=== PATIENT | male | born 1975 | race Caucasian/White ===

== ENCOUNTER 2020-04-23 01:39 | Outpatient (CLI) | payer OTHER, SELFPAY ==
[2020-04-23 19:29] LABS: SARS-CoV-2 RNA PCR Negative
== END 2020-04-23 01:40 | disposition home or self-care (01) ==
LOC: ANHCOVIDDT 01:40
PROVIDERS: PCP Family Medicine Sports Medicine; Visit Provider Internal Medicine Gastroenterology
DX: Z01.812 Encounter for preprocedural laboratory examination (principal); Z11.59 Encounter for screening for other viral diseases
CPT/HCPCS: 87635; C9803; U0003

== ENCOUNTER 2020-04-26 02:20 | Day surgery (SDC) | payer OTHER, SELFPAY ==
[2020-04-19 09:29] VITALS: BMI 28.6
--- NOTE | 2020-04-25 09:06 | WPDANESEPP ---
Anes - Eval Pre Procedure Procedure: Operation Date: 04/26/20 07:30 Proposed Procedures p Esophagogastroduodenoscopy & Colonoscopy - El Norton MD Date/Time: 04/25/20 09:06 Pre Op Diagnosis: Rectal Bleeding/ GERD Patient Data Age: 44 Gender: M Height: 1.8 m Weight: 93.18 kg Allergies Allergy/AdvReac Type Severity Reaction Status Date / Time No Known Allergies Allergy Verified 04/19/20 09:10 Home Medications Medication Instructions Recorded Confirmed Type alprazolam 0.5 mg PO PRN PRN 04/19/20 04/19/20 History esomeprazole magnesium [Nexium] 20 mg PO DAILY 04/19/20 04/19/20 History fluoxetine 40 mg PO DAILY 04/19/20 04/19/20 History losartan 100 mg PO DAILY 04/19/20 04/19/20 History Patient hx anesthesia problems: none Family hx anesthesia problems: none PMFSH Past Medical History Medical History Anxiety HTN (hypertension) Smoking history Family History Family History Father Diabetes mellitus Hypertension Family history of cardiovascular disease Acute myocardial infarction, Onset Age: 70 Cerebrovascular accident Family history of coronary artery disease Grandparent Diabetes mellitus Mother Family history of scoliosis Other No family history of cardiovascular disease Social History Social History Smoking status: Current every day smoker Alcohol intake: current Exam Day of Procedure 04/25/20 09:06
[2020-04-26 06:29] VITALS: BP 152/103; PULSE 85; RESP 16; TEMP 36.3; O2SAT 95; BMI 29.2
[2020-04-26] MEDS: LACTATED RINGERS 1,000 ML 150 ML IV CONT (06:38)
--- NOTE | 2020-04-26 07:10 | WPDANESEPPF ---
Anes - Initial Pre Proc Eval Procedure: Operation Date: 04/26/20 07:30 Proposed Procedures p Esophagogastroduodenoscopy & Colonoscopy - El Norton MD Date/Time: 04/26/20 07:10 Surgeon: El Norton MD Pre Op Diagnosis: Rectal Bleeding/ GERD Patient Data Age: 44 Gender: M Height: 5 ft 11 in Weight: 95.1 kg Last Vital Signs Temp 97.3 F L 04/26/20 06:29 Pulse 85 04/26/20 06:29 Resp 16 04/26/20 06:29 BP 152/103 H 04/26/20 06:29 Pulse Ox 95 04/26/20 06:29 Allergies Allergy/AdvReac Type Severity Reaction Status Date / Time No Known Allergies Allergy Verified 04/26/20 06:26 Home Medications Medication Instructions Recorded Confirmed Type alprazolam 0.5 mg PO PRN PRN 04/19/20 04/26/20 History esomeprazole magnesium [Nexium] 20 mg PO DAILY 04/19/20 04/26/20 History fluoxetine 40 mg PO DAILY 04/19/20 04/26/20 History losartan 100 mg PO DAILY 04/19/20 04/26/20 History Patient hx anesthesia problems: none Family hx anesthesia problems: none PMFSH Past Medical History Medical History Anxiety HTN (hypertension) Smoking history Family History Family History Father Diabetes mellitus Hypertension Family history of cardiovascular disease Acute myocardial infarction, Onset Age: 70 Cerebrovascular accident Family history of coronary artery disease Grandparent Diabetes mellitus Mother Family history of scoliosis Other No family history of cardiovascular disease Social History Social History Smoking status: Current every day smoker Alcohol intake: current Anes - Eval Final PreProcedure Day of Procedure 04/26/20 07:10 Patient weight: overweight Heart: regular rate and rhythm Lungs: clear to auscultation Airway: Mallampati scale class II Neurological: alert and oriented Last oral intake: >/= 8 hours ASA classification: II Emergent: no Anesthetic plan: proceed Anesthesia type and monitoring: general GIVS and standard monitoring Informed Consent: The patient's anesthetic plan and its attendant risks and benefits were discussed with the patient/family/POA. Questions were solicited and answers provided to the satisfaction of the patient/family/POA.
--- NOTE | 2020-04-26 07:55 | SUR.OPER ---
EGD COMPLETED AT 0750, COLONOSCOPY STARTED AT 0756.
--- NOTE | 2020-04-26 08:09 | WPDGICN ---
Assessment and Plan Assessment and plan (1) Rectal bleeding: Code(s): K62.5 - Hemorrhage of anus and rectum Status: Acute Assessment and Plan: Because of rectal bleeding high-fiber diet is advised to colonoscopy will be performed to evaluate for source of bleeding consider hemorrhoid banding at some point if this hemorrhoids are confirmed. Further recommendations after endoscopy. (2) GERD (gastroesophageal reflux disease): Code(s): K21.9 - Gastro-esophageal reflux disease without esophagitis Status: Acute Assessment and Plan: Patient has chronic GE reflux disease requiring Nexium on a daily basis. Plan is for EGD to assess for underlying Cordero's esophagus or other difficulties. GI Consult Note Consult date/time: 04/26/20 08:09 HPI: Eligio Gomez is a 44 year old male Seen in evaluation at the request of Dr. Alex Basurto. patient has a long history of GE reflux disease. States he is heartburn indigestion promptly after discontinuing Nexium. He requires Nexium 20 mg p.o. daily long-term. This appears to control symptoms. He denies any dysphagia or bleeding. His weight has remained stable. He presents today for screening EGD. Patient also complains of intermittent bright red blood per rectum this occurs often on period typically occurs after wiping. Sometimes blood is admixed with stool. States that his bowel habits are in general regular. He denies any weight loss. He has no abdominal pain. Review of Systems Review of Systems: All systems reviewed & are unremarkable except as noted in HPI and below PMFSH Past Medical History Medical History Anxiety HTN (hypertension) Smoking history Family History Family History Father Diabetes mellitus Hypertension Family history of cardiovascular disease Acute myocardial infarction, Onset Age: 70 Cerebrovascular accident Family history of coronary artery disease Grandparent Diabetes mellitus Mother Family history of scoliosis Other No family history of cardiovascular disease Social History Social History Smoking status: Current every day smoker Alcohol intake: current Meds Home Medications and Allergies Home Medications Medication Instructions Recorded Confirmed Type alprazolam 0.5 mg PO PRN PRN 04/19/20 04/26/20 History esomeprazole magnesium [Nexium] 20 mg PO DAILY 04/19/20 04/26/20 History fluoxetine 40 mg PO DAILY 04/19/20 04/26/20 History losartan 100 mg PO DAILY 04/19/20 04/26/20 History Allergies Allergy/AdvReac Type Severity Reaction Status Date / Time No Known Allergies Allergy Verified 04/26/20 06:26 Vital Signs Vital Signs - 24 hr 04/26/20 06:29 Temperature 97.3 F L Pulse Rate 85 Respiratory Rate 16 Blood Pressure 152/103 H Pulse Oximetry 95 Exam Narrative: Exam Narrative: Physical exam reveals patient to be alert. Vital signs stable. HEENT exam unremarkable. Lungs are clear to auscultation and percussion. Heart is without murmur or extra sounds. Abdominal exam bowel sounds are present soft nontender with no organomegaly. Digital external rectal exam is normal.
[2020-04-26 08:10] VITALS: BP 134/92; PULSE 97; RESP 21; O2SAT 98
[2020-04-26 08:20] VITALS: BP 130/90; PULSE 88; RESP 21; O2SAT 97
[2020-04-26 08:30] VITALS: BP 137/94; PULSE 82; RESP 16; O2SAT 97
== END 2020-04-26 08:43 | disposition home or self-care (01) ==
PROVIDERS: Visit Provider Internal Medicine Gastroenterology
PROC: 0DJ08ZZ Inspection of Upper Intestinal Tract, Via Natural or Artificial Opening Endoscopic (ICD-10-PCS; CPT 43235; principal; 2020-04-26 07:30)
DX: K62.5 Hemorrhage of anus and rectum (principal); D12.2 Benign neoplasm of ascending colon; K64.8 Other hemorrhoids; K21.0 Gastro-esophageal reflux disease with esophagitis; K44.9 Diaphragmatic hernia without obstruction or gangrene; K22.70 Barrett's esophagus without dysplasia
CPT/HCPCS: 43239; 45385; 87635; 88305; C9803; J2704; J7120; U0003

== ENCOUNTER 2021-09-19 07:49 | Outpatient (CLI) | payer OTHER, SELFPAY ==
[2021-09-19 08:56] LABS: Alanine Aminotransferase 57 U/L (4-50); Albumin Level 4.8 g/dL (3.5-5.1); Alkaline Phosphatase 54 U/L (38-126); Anion Gap 12 mmol/L (8-16); Aspartate Amino Transferase 42 U/L (17-59); Bilirubin,Total 0.9 mg/dL (0.2-1.3); Blood Urea Nitrogen 22 mg/dL (9-20); CRP < 0.5 mg/dL (<1.0); Calcium 9.4 mg/dL (8.4-10.2); Carbon Dioxide 23 mmol/L (22-30); Chloride 100 mmol/L (98-107); Cholesterol 243 mg/dL (0-200); Estimated Glomerular Filt Rate > 60; Glucose 118 mg/dL (65-110); HDL Direct 45 mg/dL; Potassium 4.4 mmol/L (3.4-5.0); Sodium 135 mmol/L (137-145); Triglycerides 156 mg/dL (<150)
[2021-09-19 09:03] LABS: Erythrocyte Sedimentation Rate 1 mm/hr (0-20)
[2021-09-19 09:05] LABS: LDL Cholesterol Direct 134 mg/dL
[2021-09-19 15:21] LABS: Basophils Percent Auto 0.3 % (0.2-1.2); Eosinophils Absolute Auto 0.3 K/mm3 (0-0.3); Eosinophils Percent Auto 3.5 % (0-4.4); Hemoglobin 18.6 g/dL (14.0-18.0); Immature Granulocyte Absolute 0.01 K/mm3 (0.00-0.031); Immature Granulocyte Percent A 0.1 % (0-0.5); Lymphocytes Absolute Auto 1.48 K/mm3 (0.9-3.2); Mean Corpuscular HGB Conc 34.4 g/dl (32-36); Mean Corpuscular Hemoglobin 32.7 pg (26-34); Mean Corpuscular Volume 95.1 fl (80-100); Mean Platelet Volume 10.4 fl (7.4-10.4); Monocytes Absolute Auto 0.9 K/mm3 (0.1-0.6); Monocytes Percent Auto 12.3 % (2.6-8.5); Neutrophils Absolute Auto 4.4 K/mm3 (1.3-6.7); Neutrophils Percent Auto 62.8 % (45.5-73.1); Platelet Count Result 253 k/mm3 (150-375); Red Blood Count 5.68 M/mm3 (4.6-6.20); Red Cell Distribution Width 12.9 % (11.5-14.5); White Blood Count 7.1 K/mm3 (4.5-10.0)
[2021-09-19 18:12] LABS: Hemoglobin A1C 5.2 % (<5.7)
[2021-09-22 05:37] LABS: C-Peptide 1.96 ng/mL (0.80-3.85)
[2021-09-22 05:49] LABS: Insulin Level Total 6.9 uIU/mL (<=19.6)
[2021-10-06 12:33] LABS: NIL 0.01; Quantiferon TB Plus, 1T NEGATIVE
== END 2021-09-19 07:50 | disposition home or self-care (01) ==
PROVIDERS: Visit Provider Internal Medicine
DX: Z13.29 Encounter for screening for other suspected endocrine disorder (principal); Z79.899 Other long term (current) drug therapy; R61 Generalized hyperhidrosis; Z83.3 Family history of diabetes mellitus; E78.5 Hyperlipidemia, unspecified; I10 Essential (primary) hypertension
CPT/HCPCS: 36415; 80053; 80061; 83036; 83525; 84439; 84443; 84681; 85025; 85652; 86140; 86480

== ENCOUNTER 2021-09-22 12:32 | Outpatient (CLI) | payer OTHER, SELFPAY ==
--- NOTE | ~2021-09-22 | CT_ITS ---
EXAMINATION: CT chest abdomen pelvis w con EXAM DATE: 09/22/2021 13:45 INDICATION: R61 - Generalized hyperhidrosis. TECHNIQUE: Spiral CT of the chest, abdomen and pelvis was performed following intravenous injection o f 100 mL Omnipaque 350. Axial, coronal and sagittal images chest, abdomen and pelvis were reviewed. Coronal maximum intensity pixel images of chest reviewed. The dose-length product (DLP) for this ex amination was 1129.65 mGy-cm. The exposure was tailored according to patient size (auto mA exposure control), and iterative reconstruction (ASIR) was used as additional dose reduction technique. There is no prior study for comparison. FINDINGS: CHEST: The lungs are clear. There are no pleural or pericardial effusions. Tracheobronchial tree is patent. There is no mediastinal, hilar or axillary lymphadenopathy. There is no pneumothorax. Heart normal in size. There is mild coronary arterial calcification, arterial sclerosis. ABDOMEN PELVIS: There is hepatic steatosis without suspicious focal lesion identified. Spleen, adren al glands, pancreas are unremarkable. Gallbladder is unremarkable. No biliary obstruction. Portal and splenic veins are patent. Kidneys enhance symmetrically. There is no hydronephrosis. Mild pro statomegaly. The bladder is unremarkable. There is no retroperitoneal or pelvic lymphadenopathy. Small left inguinal fat-containing hernia. The appendix is normal. There is mild to moderate scattered colonic diverticulosis. There is no jignesh cent inflammatory change to suggest diverticulitis. The stomach and small bowel are unremarkable. Th ere is expected amount of colonic stool. No free intraperitoneal gas. There are no osteoblastic o r osteolytic lesions identified. IMPRESSION: 1. Hepatic steatosis. 2. Mild prostatomegaly. 3. Small left inguinal hernia. 4. Scattered colonic diverticulosis. Reviewed, dictated and finalized at location A. JOINTER OPERATOR
== END 2021-09-22 12:33 | disposition home or self-care (01) ==
PROVIDERS: PCP Internal Medicine; Visit Provider Internal Medicine
DX: R61 Generalized hyperhidrosis (principal); K76.0 Fatty (change of) liver, not elsewhere classified; N40.0 Benign prostatic hyperplasia without lower urinary tract symptoms; K40.90 Unilateral inguinal hernia, without obstruction or gangrene, not specified as recurrent; K57.30 Diverticulosis of large intestine without perforation or abscess without bleeding
CPT/HCPCS: 71260; 74177; Q9967

== ENCOUNTER 2022-03-13 01:29 | Emergency (ER) | payer OTHER, SELFPAY ==
--- NOTE | ~2022-03-13 | CT_ITS ---
EXAMINATION: CT cervical spine wo con DATE: 03/13/2022 02:33 INDICATION: Head injury. TECHNIQUE: Computed tomography (CT) of the cervical spine was performed without intravenous contrast. Automated exposure control and iterative reconstruction technique were employed. The dose-length pro duct was 431.22 mGy-cm. COMPARISON: None FINDINGS: There is 7 degrees levocurvature of cervical spine. There is mild kyphosis of cervical spin e. Vertebral body heights are normal. There is mildly decreased disc height at C5-C6. The following d isc levels are specifically discussed: C2-C3: There is mild right uncovertebral joint osteoarthritis. There is mild bilateral facet joint os teoarthritis. There is no neural foraminal stenosis. There is no central canal stenosis. C3-C4: There is mild right and severe left uncovertebral joint osteoarthritis. There is no facet join t osteoarthritis. There is mild left neural foraminal stenosis. There is mild central canal stenosis. C4-C5: There is mild bilateral uncovertebral joint osteoarthritis. There is no facet joint osteoarthr itis. There is no neural foraminal stenosis. There is mild central canal stenosis. C5-C6: There is mild bilateral uncovertebral joint osteoarthritis. There is moderate right facet join t osteoarthritis. There is no neural foraminal stenosis. There is mild central canal stenosis. C6-C7: There is no uncovertebral joint osteoarthritis. There is mild right facet joint osteoarthritis . There is no neural foraminal stenosis. There is no central canal stenosis. C7-T1: There is no uncovertebral joint osteoarthritis. There is severe bilateral facet joint osteoart hritis. There is mild bilateral neural foraminal stenosis. There is no central canal stenosis. IMPRESSION: 1. No fracture. 2. Mild cervical spondylosis. Reviewed, dictated and finalized at location A.
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
[2022-03-13 01:41] VITALS: BP 132/64; PULSE 82; RESP 18; TEMP 36.1; O2SAT 98
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
[2022-03-13] MEDS: HYDROcodone/acetaminophen (*CRX) 5-325 MG TABLET 1 TAB PO (03:06)
[2022-03-13 05:03] VITALS: BP 140/85; PULSE 72; RESP 18; O2SAT 98
== END 2022-03-13 05:05 | disposition home or self-care (01) ==
PROVIDERS: Emergency Provider Emergency Medicine
DX: S42.001A Fracture of unspecified part of right clavicle, initial encounter for closed fracture (principal); V28.0XXA Motorcycle driver injured in noncollision transport accident in nontraffic accident, initial encounter
CPT/HCPCS: 70450; 72125; 73030; 99284; A4565; A9270

== ENCOUNTER 2023-06-28 18:43 | Emergency (ER) | payer OTHER, SELFPAY ==
[2023-06-28 18:53] VITALS: BP 133/85; PULSE 76; RESP 16; TEMP 37.3; O2SAT 99
--- NOTE | 2023-06-28 19:16 | ED.SKABFB ---
HPI - Skin/Abscess/Foreign Bdy General Chief complaint: Skin/Abscess/Foreign Body Stated complaint: outer ear pain, right Time Seen by Provider: 06/28/23 19:09 Source: patient and RN notes reviewed Mode of arrival: ambulatory Limitations: no limitations History of Present Illness HPI narrative: Patient presents today complaining of redness, swelling, and pain to the right external ear. He had a skin staple placed to the external ear 1 week ago to help him quit smoking. 2-3 days ago he started having some irritation that has progressively worsened. He wanted to come in today to have the staple removed. Related Data Allergies Allergy/AdvReac Type Severity Reaction Status Date / Time No Known Allergies Allergy Verified 06/28/23 18:48 Review of Systems Review of Systems: CONSTITUTIONAL: Denies body aches, fever, chills, or sweats. EYES: Denies visual changes, redness, or discharge. ENT: Denies rhinorrhea, congestion, sore throat, or otalgia.+ redness, swelling, and pain to the right external ear CARDIOVASCULAR: Denies chest pain, palpitations, or edema. RESPIRATORY: Denies cough or dyspnea. GASTROINTESTINAL: Denies abdominal pain, nausea, vomiting, or diarrhea. GENITOURINARY: Denies dysuria or hematuria. SKIN: Denies rash, itching, or wounds. MUSCULOSKELETAL: Denies back pain, joint pain, or myalgia. NEUROLOGIC: Denies headache, numbness, tingling, or weakness. PSYCH: Denies depression or anxiety. [facility] Past Medical History Medical History TRACY-inhibitor cough Anterior chest wall pain Anxiety BMI 30.0-30.9,adult BPPV (benign paroxysmal positional vertigo) Dyslipidemia Encounter for preventive health examination Fatty liver FHx: coronary artery disease FHx: type 2 diabetes mellitus HTN (hypertension) Hx of colonic polyps Hypersomnolence Night sweats On group home drug therapy Polycythemia Prostate cancer screening Smoking history Testosterone deficiency Vitamin D deficiency Family History Family History Father Diabetes mellitus Hypertension Family history of cardiovascular disease Acute myocardial infarction, Onset Age: 70 Cerebrovascular accident Family history of coronary artery disease Grandparent Diabetes mellitus Mother Family history of scoliosis Other No family history of cardiovascular disease Social History Social History Smoking status: Current some day smoker Alcohol intake: current Lack of Transportation: No Lack of Food: Never True Current Housing: I Have Housing Concerned About Future Housing: No Difficulty Paying Gas/Electric Bills: No Difficulty Paying for Meds: No Currently Unemployed: No Education: High School Diploma/GED Difficulty w/ Childcare or Family Care: No Occupation/Education: occupation Gender identity (if verbalized by the patient): Male Comments At time of signature, I have reviewed and agree with nursing past medical, surgical, social and family history unless otherwise noted. Please see nursing chart for further information. There is no relevant family history pertinent to the presenting complaint Exam Narrative: GENERAL: Well-appearing, well-nourished, and in no acute distress. HEAD: Normocephalic, atraumatic. EYES: EOMI. No redness or drainage. Conjunctivae normal. ENT: Mucous membranes pink and moist. Nares clear. Skin staple to the right external ear at the inferior rio. There is some mild edema and erythema as well as some crusting surrounding the insertion sites. Tender to palpation. NECK: Normal AROM. CHEST: No respiratory distress. EXTREMITIES: Normal range of motion. No edema. SKIN: Warm, dry, no rash. Capillary refill normal. Normal skin turgor. NEURO: No focal deficits. Alert and oriented x3. Gait steady. PSYCH: Normal affect.
== END 2023-06-28 19:28 | disposition home or self-care (01) ==
PROVIDERS: Emergency Provider Nurse Practitioner; PCP Internal Medicine
DX: T81.40XA Infection following a procedure, unspecified, initial encounter (principal); H60.11 Cellulitis of right external ear; F17.200 Nicotine dependence, unspecified, uncomplicated; E78.5 Hyperlipidemia, unspecified; K76.0 Fatty (change of) liver, not elsewhere classified; I10 Essential (primary) hypertension
CPT/HCPCS: 99213; G0463

== ENCOUNTER 2024-04-03 11:18 | Outpatient (CLI) | payer OTHER, SELFPAY ==
--- NOTE | ~2024-04-03 | CT_ITS ---
CT of the Abdomen and Pelvis: Indication: Abdominal pain Technique: 2.5 mm axial scans were obtained through the abdomen and pelvis following intravenous adm inistration of 100 cc of Omnipaque 350. Dose reduction technique was used on this scan by utilizing a utomated exposure control and iterative reconstruction technique. The dose-length product (DLP) was 9 62.42 mGy-cm. Findings: Scans through the lung bases are unremarkable. There is diffuse hepatic steatosis. The spleen, pancreas, gallbladder, adrenals and kidneys are withi n normal limits. No evidence of aortic aneurysm. No lymphadenopathy. No bowel obstruction or bowel wall thickening. There is no evidence to suggest acute appendicitis. Images through the pelvis were performed. Urinary bladder unremarkable. Prostate gland enlarged. Ther e is minimal inflammatory change in the left lower quadrant with central fat attenuation. No ascites. Impression: Area of fat necrosis versus epiploic appendagitis at the left lower quadrant. Diffuse hepatic steatosis. Reviewed, dictated and finalized at [facility]. Impression: Area of fat necrosis versus epiploic appendagitis at the left lower quadrant. Diffuse hepatic steatosis.
[2024-04-03 11:44] LABS: Basophils Percent Auto 0.5 % (0.2-1.2); Eosinophils Absolute Auto 0.2 K/mm3 (0-0.3); Eosinophils Percent Auto 2.9 % (0-4.4); Hemoglobin 17.3 g/dL (14.0-18.0); Immature Granulocyte Absolute 0.02 K/mm3 (0.00-0.031); Immature Granulocyte Percent A 0.2 % (0-0.5); Lymphocytes Absolute Auto 1.05 K/mm3 (0.9-3.2); Lymphocytes Percent Auto 12.8 % (18.3-44.2); Mean Corpuscular HGB Conc 34.6 g/dl (32-36); Mean Corpuscular Hemoglobin 32.2 pg (26-34); Mean Corpuscular Volume 93.1 fl (80-100); Monocytes Absolute Auto 0.7 K/mm3 (0.1-0.6); Neutrophils Absolute Auto 6.1 K/mm3 (1.3-6.7); Neutrophils Percent Auto 74.6 % (45.5-73.1); Platelet Count Result 197 k/mm3 (150-375); Red Blood Count 5.37 M/mm3 (4.6-6.20); Red Cell Distribution Width 12.3 % (11.5-14.5); White Blood Count 8.2 K/mm3 (4.5-10.0)
[2024-04-03 11:53] LABS: Estimated Glomerular Filt Rate > 60
== END 2024-04-03 11:19 | disposition home or self-care (01) ==
LOC: ANHIMG 11:19
PROVIDERS: PCP Internal Medicine; Visit Provider Internal Medicine
DX: R10.32 Left lower quadrant pain (principal); K76.0 Fatty (change of) liver, not elsewhere classified
CPT/HCPCS: 36415; 74177; 85025; Q9967

== ENCOUNTER 2024-04-24 14:05 | Outpatient (CLI) | payer OTHER, SELFPAY ==
--- NOTE | ~2024-04-24 | CT_ITS ---
EXAMINATION:CT lung screening DATE: 04/24/2024 14:26 INDICATION: Personal history of nicotine dependence. Smoker who quit 1 year ago with 20 pack year his tory. TECHNIQUE: Computed tomography (CT) of the chest was performed without intravenous contrast. Automate d exposure control and iterative reconstruction technique were employed. The dose-length product (DLP ) was 238.33 mGy-cm. COMPARISON: Chest CT 09/22/2021 FINDINGS: There is mild emphysema. The lungs demonstrate mild atelectasis. No pleural effusion. The h eart size is normal. No pericardial effusion. There is an old healed fracture of right clavicle. Ther e is mild thoracic spondylosis. IMPRESSION: 1. Lung-RADS category 1: Negative. Continue annual screening with noncontrast low-dose chest CT in 12 months. Reviewed, dictated and finalized at location A. IMPRESSION: 1. Lung-RADS category 1: Negative. Continue annual screening with noncontrast l ow-dose chest CT in 12 months.
== END 2024-04-24 14:06 | disposition home or self-care (01) ==
LOC: MICIMG 14:06
PROVIDERS: PCP Internal Medicine; Visit Provider Internal Medicine
DX: Z12.2 Encounter for screening for malignant neoplasm of respiratory organs (principal); Z87.891 Personal history of nicotine dependence
CPT/HCPCS: 71271

== ENCOUNTER 2025-05-17 08:56 | Outpatient (CLI) | payer OTHER, SELFPAY ==
--- OUTSIDE RECORDS SUMMARY | 2025-05-17 09:42 | XMS_ITS | Clinical Summary ---
Author Organization [facility] Address [address] [place] [id number] Care Team Providers Care Supervisor Metalizing Name Role Phone Chase Darling MD Primary Care Provider [phone] Social History Tobacco Use Types Packs/Day Years Used Date Smoking Tobacco: Never Assessed Sex and Gender Information Value Date Recorded Sex Assigned at Not on file Legal Sex Male 7:11 PM CDT Gender Identity Not on file Sexual Orientation Not on file Plan of Treatment Health Maintenance Due Date Last Done Comments Colorectal Cancer Screening Colonoscopy (10 Years) 1973 Annual Physical 1976 Hepatitis C 1991 DTaP, Tdap and Td Vaccines ( 1 - Tdap) 1992 Hepatitis B Vaccines (1 of 3 - 19+ 3-dose series) 1992 Pneumococcal Vaccine: 50+ Ye ars (1 of 1 - PCV) 2023 Zoster Vaccines (1 of 2) 2023 COVID-19 Vaccine (1 - 2023-2 5 season) 2025 Meningococcal B Vaccine Aged Out No l onger eligible based on patient's age to complete this topic Meningococcal Vaccine Aged Out No elan lulu eligible based on patient's age to complete this topic RSV Immunizations Under 20 Months Aged Out No longer eligible based on patient's age to complete this topic Insurance [facility] Care Teams Supervisor Metalizing Relationship Specialty Start Date End Date Chase Darling MD [address] [place] [id number] PCP - General INTERNAL MEDICINE 12/23/23
[2025-05-17 09:51] LABS: Hematocrit 51.6 % (42.0-52.0); Hemoglobin 17.8 g/dL (14.0-18.0); Immature Granulocyte Percent A 0.2 % (0-0.5); Lymphocytes Absolute Auto 0.86 K/mm3 (0.9-3.2); Mean Corpuscular HGB Conc 34.5 g/dl (32-36); Mean Corpuscular Hemoglobin 31.9 pg (26-34); Mean Corpuscular Volume 92.5 fl (80-100); Nucleated Red Blood Cells Absolute Auto 0.000 K/mm3 (0.0-0.012); Nucleated Red Blood Cells Perc 0.0 % (0.0-0.2); Platelet Count Result 190 k/mm3 (150-375); Red Blood Count 5.58 M/mm3 (4.6-6.20); White Blood Count 4.3 K/mm3 (4.5-10.0)
[2025-05-17 10:14] LABS: Alanine Aminotransferase 54 U/L (6-50); Albumin Level 4.6 g/dL (3.5-5.1); Alkaline Phosphatase 40 U/L (38-126); Anion Gap 8 mmol/L (4-12); Aspartate Amino Transferase 44 U/L (17-59); Bilirubin,Total 1.2 mg/dL (0.2-1.3); Blood Urea Nitrogen 17 mg/dL (9-20); Calcium 9.0 mg/dL (8.4-10.2); Carbon Dioxide 28 mmol/L (22-30); Chloride 100 mmol/L (98-107); Cholesterol 241 mg/dL (0-200); Estimated Glomerular Filt Rate > 60; Glucose 104 mg/dL (65-110); HDL Direct 69 mg/dL; Potassium 4.3 mmol/L (3.4-5.0); Sodium 136 mmol/L (137-145); Total Protein 7.7 g/dL (6.3-8.2); Triglycerides 86 mg/dL (<150)
[2025-05-17 10:44] LABS: Free T4 Free Thyroxine 0.90 ng/dL (0.78-2.19)
[2025-05-17 10:49] LABS: Prostate Specific Antigen 2.7 ng/mL (< OR = 4.0); Thyroid Stimulating Hormone 1.080 uIU/mL (0.465-4.680)
[2025-05-17 10:56] LABS: Hemoglobin A1C 5.2 % (<5.7)
== END 2025-05-17 08:57 | disposition home or self-care (01) ==
PROVIDERS: PCP Internal Medicine; Visit Provider Internal Medicine
DX: E55.9 Vitamin D deficiency, unspecified (principal); Z12.5 Encounter for screening for malignant neoplasm of prostate; Z79.899 Other long term (current) drug therapy; Z13.29 Encounter for screening for other suspected endocrine disorder; I10 Essential (primary) hypertension; Z13.220 Encounter for screening for lipoid disorders; Z13.1 Encounter for screening for diabetes mellitus
CPT/HCPCS: 36415; 80053; 80061; 82306; 83036; 84153; 84439; 84443; 85025; G0103